=== PATIENT | male | born 1940 | race Caucasian/White ===

== ENCOUNTER 2016-04-11 20:20 | Inpatient (IN) | payer MEDICARE, MEDICAID ==
[~2016-04-11] VITALS: Ht 185.4 cm; Wt 65.3 kg
[~2016-04-11 20:20] MED LIST: AMIO200T2 PO; AMLO5TAB4 PO; CLOP75TA2 PO; DIVA250T PO; ESOM20CA PO; INSU100V7 SQ; ISOS30TA47 PO; LEVE500T9 PO; MEMA5TAB PO; METO25TA6 PO; QUET25TA PO; SULF1TAB48 PO; TAMS-12 PO; TRAZ-144 PO; VALS160T2 PO
[2016-04-11 20:40] LABS: BASOPHILS % (AUTO) 0.5 % (0.0-2.0); DIFF TOTAL % 100 %; EOSINOPHILS # (AUTO) 0.1 /CMM (0.0-0.7); EOSINOPHILS % (AUTO) 1.1 % (0.0-6.0); HEMATOCRIT 42 % (39-51); HEMOGLOBIN 13.7 g/dL (13.5-17.5); LYMPHOCYTES % (AUTO) 31.4 % (20.0-44.0); MEAN CORPUSCULAR HEMOGLOBIN 33 PG (26.0-33.0); MEAN CORPUSCULAR HGB CONC 33 g/dl (31.0-36.0); MEAN CORPUSCULAR VOLUME 98 fL (80-96); MONOCYTES # (AUTO) 0.4 /CMM (0.1-1.30); MONOCYTES % (AUTO) 6.7 % (2.0-12.0); NEUTROPHILS # (AUTO) 3.9 /CMM (1.8-8.9); NEUTROPHILS % (AUTO) 60.3 % (43.0-81.0); PLATELET COUNT (AUTO) 207 /CMM (150-450); RED BLOOD CELL COUNT(AUTO) 4.23 MIL/uL (4.5-6.0); WHITE BLOOD COUNT (AUTO) 6.4 K/uL (4.3-11.0)
[2016-04-11 20:50] LABS: ANION GAP 12 (5-14); CALCIUM, SERUM 9.2 mg/dL (8.5-10.1); CARBON DIOXIDE 26 mmol/L (21-32); CHLORIDE 99 mmol/L (98-107); CREATININE 1.5 mg/dL (0.6-1.3); GLUCOSE 108 mg/dL (74-106); POTASSIUM 4.2 mmol/L (3.5-5.1); SODIUM SERUM 133 mmol/L (136-145); UREA NITROGEN, BLOOD 25 mg/dL (7-18)
[2016-04-11 20:54] LABS: INR 1.02 (0.87-1.13); PROTHROMBIN TIME 10.7 SECS (9.5-12.7)
[2016-04-11 20:57] LABS: TROPONIN I < 0.017 ng/mL (0.00-0.056)
[2016-04-11 20:58] LABS: ALANINE AMINOTRANSFERASE 14 U/L (12-78); ALBUMIN 3.5 g/dL (3.4-5.0); ASPARTATE AMINOTRANSFERASE 21 U/L (15-37); BILIRUBIN,DIRECT 0.1 mg/dL (0.0-0.2); BILIRUBIN,TOTAL 0.4 mg/dL (0.2-1.0); INDIRECT BILIRUBIN 0.3 mg/dL (0.0-1.1); TOTAL PROTEIN, SERUM 8.1 g/dL (6.4-8.2)
[2016-04-11 21:04] LABS: THYROID STIMULATING HORMONE 1.305 uIU/mL (0.358-3.74)
[2016-04-11 21:28] LABS: ADD UA MICROSCOPIC YES; KETONES,URINE Negative (NEGATIVE); LEUKOCYTE ESTERASE ,URINE Negative (NEGATIVE); PH,URINE 5.5 (5.0-8.0)
[2016-04-11 21:42] LABS: ADD URINE CULTURE NO; WBC,URINE 0-2 /HPF (0-3)
[2016-04-11 23:00] VITALS: BP 142/80
[2016-04-11] MEDS ORDERED: Z GUARD REMEDY 2 OZ OINT TP PRN (23:30)
[2016-04-11] MEDS ORDERED: IV NS 0.9% 1,000 ML BAG IV ONE (23:30)
[2016-04-11] MEDS ORDERED: ONDANSETRON HCL/PF 4 MG/2 ML VIAL IVP PRN (23:30)
[2016-04-11] MEDS ORDERED: ACETAMINOPHEN 325 MG TABLET PO PRN (23:30)
[2016-04-11] MEDS ORDERED: MAGNESIUM HYDROXIDE 30 ML UDC PO PRN (23:30)
[2016-04-11] MEDS ORDERED: MAG HYDROX/AL HYDROX/SIMETH 30 ML UDC PO PRN (23:30)
[2016-04-11] MEDS ORDERED: HYDROCODONE/APAP 5/325MG 1 EACH TABLET PO PRN (23:30)
[2016-04-11] MEDS ORDERED: ZOLPIDEM TARTRATE 5 MG TABLET PO PRN (23:30)
[2016-04-12] VITALS (8 sets, daily range): BP systolic 99–142; BP diastolic 60–80
[2016-04-12] MEDS ORDERED: IV NS 0.9% 0 ML ONE (04:05)
[2016-04-12] MEDS ORDERED: IV SET PRIMARY PUMP SET 1 EA INFUS.SET MC ONE (04:05)
[2016-04-12 07:56] LABS: BASOPHILS % (AUTO) 0.7 % (0.0-2.0); DIFF TOTAL % 100 %; EOSINOPHILS # (AUTO) 0.1 /CMM (0.0-0.7); EOSINOPHILS % (AUTO) 2.1 % (0.0-6.0); HEMATOCRIT 36 % (39-51); LYMPHOCYTES # (AUTO) 2.1 /CMM (0.8-4.8); LYMPHOCYTES % (AUTO) 38.3 % (20.0-44.0); MEAN CORPUSCULAR HEMOGLOBIN 33 PG (26.0-33.0); MEAN CORPUSCULAR HGB CONC 34 g/dl (31.0-36.0); MEAN CORPUSCULAR VOLUME 99 fL (80-96); MONOCYTES # (AUTO) 0.5 /CMM (0.1-1.30); MONOCYTES % (AUTO) 9.7 % (2.0-12.0); NEUTROPHILS # (AUTO) 2.8 /CMM (1.8-8.9); NEUTROPHILS % (AUTO) 49.2 % (43.0-81.0); PLATELET COUNT (AUTO) 210 /CMM (150-450); WHITE BLOOD COUNT (AUTO) 5.6 K/uL (4.3-11.0)
[2016-04-12 08:10] LABS: CALCIUM, SERUM 8.6 mg/dL (8.5-10.1); CREATININE 1.3 mg/dL (0.6-1.3); PHOSPHORUS 2.6 mg/dL (2.5-4.9); POTASSIUM 3.9 mmol/L (3.5-5.1)
[2016-04-12] MEDS: VALSARTAN 80 MG TABLET PO SCH (09:00)
[2016-04-12] MEDS: ISOSORBIDE DINITRATE (10MG) 10 MG TABLET PO SCH (09:36)
[2016-04-12] MEDS: DIVALPROEX SODIUM 250 MG TABLET.DR PO SCH ×3 (09:37→16:48)
[2016-04-12] MEDS: AMLODIPINE BESYLATE 5 MG TABLET PO SCH (09:38)
[2016-04-12] MEDS: MEMANTINE HCL 5 MG TABLET PO SCH (09:39)
[2016-04-12] MEDS: SULFAMETH/TRIMETH 800/160 MG 1 UDTAB TABLET PO SCH ×2 (09:39→16:48)
[2016-04-12] MEDS: LEVETIRACETAM (250 MG) 250 MG TABLET PO SCH ×2 (09:39→21:03)
[2016-04-12] MEDS: CLOPIDOGREL BISULFATE 75 MG TABLET PO SCH (09:39)
[2016-04-12] MEDS: PANTOPRAZOLE 40 MG TABLET.DR PO SCH (09:42)
[2016-04-12] MEDS ORDERED: DEXTROSE 50%-WATER 50 ML DISP.SYRIN IV PRN (10:00)
[2016-04-12] MEDS: AMIODARONE HCL 200 MG TABLET PO SCH (11:16)
[2016-04-12] MEDS: METOPROLOL TARTRATE 25 MG TABLET PO SCH ×2 (11:16→16:53)
[2016-04-12] MEDS ORDERED: *INSULIN REGULAR(HUMULIN R)HUM 100 UNIT/ML VIAL SQ PRN (12:00)
[2016-04-12] MEDS ORDERED: SECONDARY IV SET 1 EA INFUS.SET MC ONE (12:14)
[2016-04-12] MEDS: Magnesium 1GM/D5W 100ML PREMIX 100 ML IV SCH ×4 (12:17→18:04)
[2016-04-12] MEDS: BLOOD SUGAR DIAGNOSTIC 1 EACH STRIP VI SCH ×3 (12:17→21:04)
[2016-04-12] MEDS ORDERED: Magnesium 1GM/D5W 100ML PREMIX 100 ML IV SCH (12:30)
[2016-04-12] MEDS ORDERED: Z GUARD REMEDY 2 OZ OINT TP PRN (14:00)
[2016-04-12] MEDS: UREA 10% -AHA 4% CREAM 57 GM TUBE TP SCH ×3 (14:00→17:14)
[2016-04-12] MEDS: Z GUARD REMEDY 2 OZ OINT TP SCH (16:46)
[2016-04-12] MEDS ORDERED: IV NS 0.9% 1,000 ML ONE (17:58)
[2016-04-12] MEDS: TAMSULOSIN 0.4 MG CAP.SR.24H PO SCH (21:03)
[2016-04-12] MEDS: TRAZODONE 50 MG TABLET PO SCH (21:04)
[2016-04-12] MEDS: QUETIAPINE FUMARATE 25 MG TABLET PO SCH (21:05)
[2016-04-12] MEDS: INSULIN DETEMIR 100 UNIT/ML CARTRIDGE SQ SCH (21:10)
[2016-04-12] MEDS ORDERED: INSULIN DETEMIR 100 UNIT/ML CARTRIDGE SQ SCH (22:00)
[2016-04-13] MEDS: BLOOD SUGAR DIAGNOSTIC 1 EACH STRIP VI SCH ×4 (06:30→22:50)
[2016-04-13] MEDS: PANTOPRAZOLE 40 MG TABLET.DR PO SCH (06:30)
[2016-04-13 07:35] LABS: CALCIUM, SERUM 8.3 mg/dL (8.5-10.1); CREATININE 1.6 mg/dL (0.6-1.3)
[2016-04-13 08:00] VITALS: BP 125/71
[2016-04-13] MEDS: SULFAMETH/TRIMETH 800/160 MG 1 UDTAB TABLET PO SCH ×2 (08:33→16:34)
[2016-04-13] MEDS: MEMANTINE HCL 5 MG TABLET PO SCH (08:33)
[2016-04-13] MEDS: AMIODARONE HCL 200 MG TABLET PO SCH (08:33)
[2016-04-13] MEDS: DIVALPROEX SODIUM 250 MG TABLET.DR PO SCH ×3 (08:33→16:34)
[2016-04-13] MEDS: LEVETIRACETAM (250 MG) 250 MG TABLET PO SCH ×2 (08:33→22:58)
[2016-04-13] MEDS: CLOPIDOGREL BISULFATE 75 MG TABLET PO SCH (08:33)
[2016-04-13] MEDS: METOPROLOL TARTRATE 25 MG TABLET PO SCH ×2 (08:36→16:32)
[2016-04-13] MEDS: AMLODIPINE BESYLATE 5 MG TABLET PO SCH (08:36)
[2016-04-13] MEDS: VALSARTAN 80 MG TABLET PO SCH (08:36)
[2016-04-13] MEDS: ISOSORBIDE DINITRATE (10MG) 10 MG TABLET PO SCH (08:36)
[2016-04-13] MEDS: Z GUARD REMEDY 2 OZ OINT TP SCH ×2 (08:37→16:35)
[2016-04-13] MEDS: UREA 10% -AHA 4% CREAM 57 GM TUBE TP SCH ×2 (08:37→16:35)
[2016-04-13 16:00] VITALS: BP 99/56
[2016-04-13 20:00] VITALS: BP 100/56
[2016-04-13] MEDS: INSULIN DETEMIR 100 UNIT/ML CARTRIDGE SQ SCH (22:57)
[2016-04-13] MEDS: TRAZODONE 50 MG TABLET PO SCH (22:58)
[2016-04-13] MEDS: QUETIAPINE FUMARATE 25 MG TABLET PO SCH (22:58)
[2016-04-13] MEDS: TAMSULOSIN 0.4 MG CAP.SR.24H PO SCH (22:58)
[2016-04-14] MEDS: BLOOD SUGAR DIAGNOSTIC 1 EACH STRIP VI SCH ×2 (05:22→12:08)
[2016-04-14] MEDS: INSULIN REGULAR, HUMAN 100 UNIT/ML 3 ML VIAL SQ PRN ×2 (05:25→12:11)
[2016-04-14 07:29] LABS: CALCIUM, SERUM 8.2 mg/dL (8.5-10.1); CREATININE 1.7 mg/dL (0.6-1.3); POTASSIUM 4.6 mmol/L (3.5-5.1)
[2016-04-14 08:00] VITALS: BP 102/53
[2016-04-14] MEDS: UREA 10% -AHA 4% CREAM 57 GM TUBE TP SCH (08:37)
[2016-04-14] MEDS: SULFAMETH/TRIMETH 800/160 MG 1 UDTAB TABLET PO SCH (08:37)
[2016-04-14] MEDS: AMIODARONE HCL 200 MG TABLET PO SCH (08:38)
[2016-04-14] MEDS: DIVALPROEX SODIUM 250 MG TABLET.DR PO SCH ×2 (08:38→12:08)
[2016-04-14] MEDS: VALSARTAN 80 MG TABLET PO SCH (08:38)
[2016-04-14] MEDS: ISOSORBIDE DINITRATE (10MG) 10 MG TABLET PO SCH (08:39)
[2016-04-14] MEDS: PANTOPRAZOLE 40 MG TABLET.DR PO SCH (08:39)
[2016-04-14] MEDS: METOPROLOL TARTRATE 25 MG TABLET PO SCH (08:39)
[2016-04-14] MEDS: LEVETIRACETAM (250 MG) 250 MG TABLET PO SCH (08:39)
[2016-04-14] MEDS: AMLODIPINE BESYLATE 5 MG TABLET PO SCH (08:40)
[2016-04-14] MEDS: CLOPIDOGREL BISULFATE 75 MG TABLET PO SCH (08:40)
[2016-04-14] MEDS: Z GUARD REMEDY 2 OZ OINT TP SCH (08:41)
[2016-04-14] MEDS: MEMANTINE HCL 5 MG TABLET PO SCH (08:43)
[2016-04-14 16:00] VITALS: BP 99/50
== END 2016-04-14 16:46 | DRG 70 ==
LOC: ER 20:25 → TELE 22:06 → MED 04-12 13:23
PROVIDERS: ADMIT Family Medicine; ATTEND Family Medicine
DX: G93.40 Encephalopathy, unspecified (principal); N17.0 Acute kidney failure with tubular necrosis; E87.1 Hypo-osmolality and hyponatremia; G45.9 Transient cerebral ischemic attack, unspecified; E11.9 Type 2 diabetes mellitus without complications; E86.0 Dehydration; F03.90 Unspecified dementia, unspecified severity, without behavioral disturbance, psychotic disturbance, mood disturbance, and anxiety; I10 Essential (primary) hypertension; Z86.73 Personal history of transient ischemic attack (TIA), and cerebral infarction without residual deficits; N40.0 Benign prostatic hyperplasia without lower urinary tract symptoms; K21.9 Gastro-esophageal reflux disease without esophagitis; F32.9 Major depressive disorder, single episode, unspecified; G40.909 Epilepsy, unspecified, not intractable, without status epilepticus; H54.0 Blindness, both eyes
CPT/HCPCS: 36415; 70450-TC; 71010-TC; 80048-TC; 80061-TC; 80076-TC; 80164-TC; 81000-TC; 82140-TC; 82962-TC; 83735-TC; 84100-TC; 84443-TC; 84484-TC; 85025-TC; 85730-TC; 87081-TC; 87086-TC; 97001-TC; A4606; J1815; J3475; J7030; Z7610